=== PATIENT | female | born 1955 | race Caucasian/White ===

== ENCOUNTER 2023-02-13 19:57 | Emergency (ER) | payer OTHER ==
[~2023-02-13] VITALS: Ht 170.2 cm; Wt 68.0 kg
[2023-02-13 20:37] VITALS: BP_SYST 138
--- NOTE | 2023-02-13 20:45 | NUR ---
Pt placed back in waiting room after triage.
--- NOTE | 2023-02-13 21:15 | NUR ---
Dr. Walker with patient at this time.
[2023-02-13] MEDS ORDERED: NIRM1TAB5 PO (22:18)
[2023-02-13] MEDS ORDERED: BENZ100C92 PO (22:18)
[2023-02-13] MEDS ORDERED: IBUP-1971 PO (22:18)
[2023-02-13 22:20] VITALS: BP_SYST 135
--- NOTE | 2023-02-13 22:29 | NUR ---
Instructed to maintain social distancing to prevent spread of covid.
--- NOTE | 2023-02-13 22:30 | NUR ---
Patient given written and verbal discharge instructions and verbalizes understanding. ER MD discussed with patient the results and treatment provided. Patient in stable condition. ID arm band removed. IV catheter removed intact and dressing applied, no active bleeding. Rx of Benzonatate, ibuprofen, and Paxlovid 150-100mg pack given. Patient educated on pain management and to follow up with PMD. Opportunity for questions provided and answered.
== END 2023-02-13 22:30 | disposition home or self-care (01) ==
LOC: SED 19:57
DX: U07.1 COVID-19 (principal); R05.9 Cough, unspecified; R51.9 Headache, unspecified; R50.9 Fever, unspecified; Z88.5 Allergy status to narcotic agent; Z88.6 Allergy status to analgesic agent; Z79.899 Other long term (current) drug therapy
CPT/HCPCS: 99283

== ENCOUNTER 2023-07-08 01:20 | Emergency (ER) | payer OTHER ==
[~2023-07-08] VITALS: Ht 170.2 cm; Wt 70.3 kg
[~2023-07-08 01:20] MED LIST: BENZ100C92 PO; IBUP-1971 PO; NIRM1TAB5 PO
[2023-07-08 01:25] VITALS: BP_SYST 142; PULSE 71; RESP 18; TEMP 97.8; O2SAT 100
[2023-07-08] MEDS ORDERED: KETOROLAC TROMETHAMINE 60 MG/2 ML VIAL IM ONE (01:30)
[2023-07-08] MEDS ORDERED: IBUP-1969 PO (02:54)
[2023-07-08] MEDS ORDERED: HYDR-3917 PO (02:54)
[2023-07-08] MEDS ORDERED: fentaNYL CITRATE/PF 100 MCG/2 ML AMP IM ONE (03:00)
[2023-07-08 03:12] VITALS: BP_SYST 120; PULSE 63; RESP 16; TEMP 98.7; O2SAT 99
== END 2023-07-08 03:12 | disposition home or self-care (01) ==
LOC: SED 01:20
DX: S90.01XA Contusion of right ankle, initial encounter (principal); Z88.5 Allergy status to narcotic agent; Z79.899 Other long term (current) drug therapy; W20.8XXA Other cause of strike by thrown, projected or falling object, initial encounter; Y93.89 Activity, other specified; Y92.89 Other specified places as the place of occurrence of the external cause; Y99.8 Other external cause status
CPT/HCPCS: 99284; 73610; 96372; J1885; J3010